=== PATIENT | female | born 1980 | race American Indian/Alaskan Native ===

== ENCOUNTER 2016-06-10 13:43 | Outpatient (CLI) | payer BC ==
--- NOTE | 2016-06-10 14:53 | XRay Report ---
BILATERAL KNEES, 3 VIEWS History: Bilateral knee pain. 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 No evidence for fracture, osteochondral defect or large joint effusion. The soft tissues are unremarkable. Impression: Mild osteoarthritic changes.
--- NOTE | 2016-06-10 14:59 | Cat Scan Report ---
CT HEAD WITHOUT CONTRAST: HISTORY: Headache. Serial contiguous axial images were obtained through the cranium. Intravenous contrast material was not administered. The ventricles are normal in size and appearance. There is no mass effect or midline shift. No areas of abnormally increased or decreased attenuation are seen. No mass lesion is seen. The mastoid air cells and visualized portions of the sinuses are normal. IMPRESSION: Cranial CT scan within normal limits.
--- NOTE | 2016-06-10 14:59 | Cat Scan Report ---
CT SINUSES WITHOUT CONTRAST: HISTORY: Headache. TECHNIQUE: Helical CT with sagittal and coronal reformatted images. The visualized sinus groups are well aerated. The ostiomeatal units are normal and patent bilaterally. The nasal septum is midline. The nasal turbinates are symmetrical. There is no evidence of bertha bullosa or sinusitis. CONCLUSION: Negative sinus CT.
== END 2016-06-10 13:44 | disposition home or self-care (01) ==
LOC: CT 13:43
PROVIDERS: ATTEND Family Medicine Adult Medicine
DX: R51 Headache (principal); M25.561 Pain in right knee; M25.562 Pain in left knee
CPT/HCPCS: 70450; 70486